=== PATIENT | female | born 1955 | race Two or more races ===

== ENCOUNTER 2022-08-14 10:15 | Inpatient (IN) | payer OTHER ==
[~2022-08-14] VITALS: Ht 160 cm; Wt 49.4 kg
[2022-08-14] MEDS ORDERED: SIMVAST PO (15:05)
[2022-08-14] MEDS ORDERED: ZESTRIL20 MG PO (15:05)
[2022-08-18] MEDS ORDERED: SIMVASTATIN10 MG (08:12)
[2022-08-20] MEDS ORDERED: PEPCID AC20 MG PO (08:46)
[2022-08-20] MEDS ORDERED: TRAM1TAB98 PO (08:46)
== END 2022-08-20 11:54 | disposition home or self-care (01) | DRG 331 ==
LOC: O/R 08-18 06:00 → SURH 08-18 10:15
PROVIDERS: ADMIT Surgery; ATTEND Surgery
PROC: 07BB4ZZ Excision of Mesenteric Lymphatic, Percutaneous Endoscopic Approach (ICD-10-PCS; 2022-08-18)
PROC: 0DTF4ZZ Resection of Right Large Intestine, Percutaneous Endoscopic Approach (ICD-10-PCS; principal; 2022-08-18 14:30)
DX: D12.2 Benign neoplasm of ascending colon (principal); Z20.822 Contact with and (suspected) exposure to COVID-19